=== PATIENT | male | born 2000 | race Caucasian/White ===

== ENCOUNTER 2020-08-22 05:24 | Emergency (ER) | payer OTHER | END 2020-08-22 10:00 | disposition home or self-care (01) | LOC: ED 05:24 | DX: Z02.89 Encounter for other administrative examinations (principal) ==

== ENCOUNTER 2020-08-22 05:24 | Emergency (ER) | payer OTHER, MEDICAID ==
[~2020-08-22] VITALS: Ht 170.2 cm; Wt 122.5 kg
[2020-08-22 05:29] VITALS: Ht 170.2 cm; Wt 122.5 kg
[2020-08-22 08:26] LABS: BASOPHIL % 0.4 % (0.2-1.5); PLATELET COUNT 332 x10^3mcL (152-348); RED CELL DISTRIBUTION WIDTH 14.4 % (12.1-16.2)
[2020-08-22 08:43] LABS: CALCIUM 9.1 mg/dL (8.5-10.1); CARBON DIOXIDE 27.9 mmol/L (21-32); CHLORIDE SERUM 102 mmol/L (98-107); CREATININE SERUM 0.9 mg/dL (0.7-1.3); GFR1 > 60 mL/min; GLUCOSE SERUM 99 mg/dL (74-106); POTASSIUM SERUM 4.1 mmol/L (3.5-5.1); SODIUM SERUM 139 mmol/L (136-145)
[2020-08-22 08:46] LABS: ALKALINE PHOSPHATASE 144 U/L (46-116); ALT/SGPT 31 U/L (16-63); AST/SGOT 16 U/L (15-37); BILIRUBIN TOTAL 0.68 mg/dL (0.20-1.00); TOTAL PROTEIN, SERUM 8.2 g/dL (6.4-8.2)
[2020-08-22 09:01] LABS: AMPHETAMINE QUAL UR POSITIVE (See below)
[2020-08-22 10:00] VITALS: BP 105/78
== END 2020-08-22 10:00 | disposition home or self-care (01) ==
LOC: ED 05:24
PROVIDERS: Emergency Medicine
DX: M54.9 Dorsalgia, unspecified (principal); R07.89 Other chest pain; V49.49XA Driver injured in collision with other motor vehicles in traffic accident, initial encounter; Y93.I9 Activity, other involving external motion; Y92.488 Other paved roadways as the place of occurrence of the external cause; Y99.8 Other external cause status
CPT/HCPCS: G0480